=== PATIENT | male | born 2000 | race Caucasian/White ===

== ENCOUNTER 2021-08-27 23:22 | Emergency (ER) | payer OTHER ==
[2021-08-28 00:08] VITALS: BP 118/79; PULSE 79; TEMP 97.8; BMI 29.7
[2021-08-28] MEDS ORDERED: FAMOTIDINE 20 MG/50 ML IVPB 20 MG/50 ML MG IVPB ONE (01:17)
[2021-08-28] MEDS ORDERED: MAG HYDROX/AL HYDROX/SIMETH -MYLANTA- ORAL SUSPENSION PO ONE (01:17)
[2021-08-28] MEDS ORDERED: ACETAMINOPHEN 1000 MG/100 ML BAG IVPB ONE (01:17)
[2021-08-28] MEDS ORDERED: SODIUM CHLORIDE 0.9% 500 ML INFUS.BAG IV ONE (01:17)
[2021-08-28] MEDS ORDERED: MAG HYDROX/AL HYDROX/SIMETH 30 ML UNIT-DOSE CUP ONE (02:23)
[2021-08-28] MEDS ORDERED: ACETAMINOPHEN INJECTION 100 ML IVPB ONE (02:23)
[2021-08-28] MEDS ORDERED: FAMOTIDINE 10 MG/ML VIAL IVPB ONE (02:24)
[2021-08-28 03:42] LABS: BASO % 0.3 % (0-2.0); EOS % 4.6 % (0-4.5); HEMATOCRIT 44.5 % (35.4-49); HEMOGLOBIN 15.4 GM/dL (11.7-16.9); LYMPH % 19.3 % (8-40); MCH 30.5 pg (25.7-33.7); MCHC 34.7 g/dl (32.0-35.9); MEAN CELL VOLUME 87.9 fl (80-96); MEAN PLT VOLUME 8.1 fl (7.5-11.1); MONO % 6.1 % (3.8-10.2); NEUT % 69.7 % (42.8-82.8); PLATELET COUNT 322 10^3/uL (134-434); RBC 5.07 M/mm3 (4.00-5.60); RDW 12.6 % (11.9-15.9); WHITE BLOOD COUNT 12.7 K/mm3 (4.0-10.0)
[2021-08-28 03:44] LABS: CALCIUM 9.5 mg/dL (8.5-10.1)
[2021-08-28 03:45] LABS: ALBUMIN 4.2 g/dl (3.4-5.0); BLOOD UREA NITROGEN 21.3 mg/dL (7-18)
[2021-08-28 03:48] LABS: CREATININE 0.7 mg/dL (0.55-1.3)
[2021-08-28 03:49] LABS: BILIRUBIN,TOTAL 0.7 mg/dL (0.2-1); TOT PROT 6.9 g/dl (6.4-8.2)
== END 2021-08-28 04:12 | disposition home or self-care (01) ==
LOC: JER 23:22
PROC: 3E0333Z Introduction of Anti-inflammatory into Peripheral Vein, Percutaneous Approach (ICD-10-PCS; principal; 2021-08-27)
PROC: 3E033GC Introduction of Other Therapeutic Substance into Peripheral Vein, Percutaneous Approach (ICD-10-PCS; 2021-08-27)
DX: R10.13 Epigastric pain (principal)
CPT/HCPCS: 36415; 76705-TC; 80053; 83690; 85025; 99284-25